=== PATIENT | female | born 1935 | race Caucasian/White ===

== ENCOUNTER 2017-04-16 13:24 | Outpatient (CLI) | payer BC, MEDICARE ==
[~2017-04-16 13:24] MED LIST: AMLODIPINE BESYL5 MG ORAL; ASPIR 8181 MG ORAL; ATORVASTATIN CA20 MG ORAL; BONE-UP PO; BYSTOLIC2.5 MG ORAL; KETOROLAC TROMET5 M1 OP; POLYTRIM EYE DR10 M1 OP; VALSARTAN-HCTZ1 EAC2 ORAL; VITAMIN D1000 UNI1 ORAL
--- NOTE | 2017-04-18 08:30 | Diagnostic Imaging Report ---
Indication: Reason For Exam: OSTEOP Technique: 10 mm thick slices obtained through the L2, L3, and L4 vertebral bodies. Cortical and trabecular regions of interest were drawn. The average trabecular bone mineral density was calculated. Total dose length product 31.56 mGycm. CTDIvol(s) 3 x 3 mGy. Dose reduction achieved using automated exposure control Comparison: 04/14/2015 Findings: The calculated bone mineral density is 90.6 mg ca-LEYVA/ml. The T score is -2.49. This indicates the patient's bone mineral density is 2.49 standard deviations below that of normal 20-year-old females. The Z score is 0.76. This indicates the patient's bone mineral density is 0.76 standard deviations above that of age-matched controls Impression: Patient mineral density is 10-25% below that of normal 20-year-old females. Patient is considered osteopenic by WHO criteria. Insufficiency fracture risk is moderate. Note, that the T score is just below the threshold for diagnosis of osteoporosis (-2.5). Note slight progression since previous study, where the T score was -2.27 and the bone mineral density was 96.[address] scanner at [facility] is accredited by the [employer] and the scans are performed using protocols designed to limit radiation exposure to as low as reasonably achievable to attain images of sufficient resolution adequate for diagnostic evaluation.
== END 2017-04-16 15:24 | disposition home or self-care (01) ==
LOC: CAT 13:24
DX: M54.2 Cervicalgia (principal); M54.40 Lumbago with sciatica, unspecified side; M79.605 Pain in left leg
CPT/HCPCS: 77078